=== PATIENT | male | born 1990 | race Two or more races ===

== ENCOUNTER 2019-03-24 01:43 | Emergency (ER) | payer MEDICAID ==
[~2019-03-24] VITALS: Ht 175.3 cm; Wt 63.5 kg
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
[2019-03-24] MEDS ORDERED: LIDOCAINE 1%-EPI 1:100,000 20 ML VIAL ONE (03:02)
[2019-03-24] MEDS ORDERED: SODIUM BICARBONATE 5 ML VIAL ONE (03:02)
[2019-03-24] MEDS ORDERED: LIDOCAINE HCL/MPF 1% 30 ML VIAL IJ ONE (03:02)
--- NOTE | 2019-03-24 03:12 | NUR ---
XRAY IN PROGRESS AT THE BEDSIDE.
[2019-03-24] MEDS: SODIUM BICARBONATE 5 ML VIAL MC ONE (03:14)
[2019-03-24] MEDS: LIDOCAINE 1%-EPI 1:100,000 20 ML VIAL TP ONE (03:14)
[2019-03-24] MEDS: LIDOCAINE 2% 20 ML MDV TP ONE (03:14)
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
--- NOTE | 2019-03-24 03:16 | NUR ---
XRAY OF HAND DONE. IMAGING SEEN BY DR ORTIZ
[2019-03-24] MEDS ORDERED: CEFTRIAXONE 1 G VIAL ONE (03:45)
[2019-03-24] MEDS ORDERED: LIDOCAINE /MPF 1% VIAL 5 ML VIAL ONE (03:45)
[2019-03-24] MEDS ORDERED: TDAP [DIPH/PERTUSSIS/TET] 0.5 ML VIAL IM ONE (03:46)
[2019-03-24] MEDS: CEFTRIAXONE 1 G VIAL IM ONE (03:50)
[2019-03-24] MEDS: TDAP [DIPH/PERTUSSIS/TET] 0.5 ML VIAL IM ONE (03:50)
--- NOTE | 2019-03-24 04:57 | NUR ---
PT'S MOTHER AND AUNT ARE AT THE BEDSIDE AND WILL TAKE PT HOME WHEN DISCHARGED.
--- NOTE | 2019-03-24 05:22 | NUR ---
Patient discharged to home in stable condition. Written and verbal after care instructions given. Patient verbalizes understanding of instruction AND RX. PT'S AUNT, MOTHER AND BROTHER ARE TAKING THE PT HOME. PT AMBULATED TO THE WC WITH A STEADY GAIT. PT WAS TAKEN TO THE CAR VIA . VSS.
[2019-03-24 05:26] VITALS: BP 115/76
== END 2019-03-24 05:20 | disposition home or self-care (01) ==
LOC: ER 01:46
DX: S62.632A Displaced fracture of distal phalanx of right middle finger, initial encounter for closed fracture (principal); S01.01XA Laceration without foreign body of scalp, initial encounter; S61.212A Laceration without foreign body of right middle finger without damage to nail, initial encounter; F17.200 Nicotine dependence, unspecified, uncomplicated; Y08.89XA Assault by other specified means, initial encounter; Y93.89 Activity, other specified; Y92.89 Other specified places as the place of occurrence of the external cause; Y99.8 Other external cause status
CPT/HCPCS: 12002; 29130; 36415; 70450; 70486; 73140; 80307; 90471; 90715; 96372; 99284; 99406; A6403; J0696; J3490 ×4; G0480

== ENCOUNTER 2020-12-25 20:01 | Emergency (ER) | payer MEDICAID ==
[~2020-12-25] VITALS: Ht 175.3 cm; Wt 67.1 kg
[2020-12-25 20:25] VITALS: BP 110/74
== END 2020-12-25 20:54 | disposition home or self-care (01) ==
LOC: ER 20:08
DX: Z20.2 Contact with and (suspected) exposure to infections with a predominantly sexual mode of transmission (principal); F17.200 Nicotine dependence, unspecified, uncomplicated; Z98.890 Other specified postprocedural states; Z90.89 Acquired absence of other organs
CPT/HCPCS: 87491; 87591

== ENCOUNTER 2021-09-21 02:50 | Emergency (ER) | payer MEDICAID ==
--- NOTE | 2021-09-21 04:00 | NUR ---
patient left without being seen
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
== END 2021-09-21 05:35 | disposition home or self-care (01) ==
LOC: ER 02:52
DX: Z53.21 Procedure and treatment not carried out due to patient leaving prior to being seen by health care provider (principal)